=== PATIENT | male | born 1970 | race Caucasian/White ===

== ENCOUNTER 2018-02-26 22:28 | Emergency (ER) | payer OTHER ==
[~2018-02-26] VITALS: Ht 177.8 cm; Wt 77.1 kg
--- NOTE | 2018-02-26 22:29 | NUR ---
PT TAKEN TO BED 10
--- NOTE | 2018-02-26 22:30 | NUR ---
Dr. Flanagan evaluating patient at bedside.
[2018-02-26 22:31] VITALS: BP 160/107
--- NOTE | 2018-02-26 22:31 | NUR ---
PATIENT IS A 47 Y/O MALE WHO PRESENTS TO THE ED C/O LEFT KNEE PAIN. PT STATES THAT HE HAS A H/O LEFT KNEE PAIN STATING, "DOCTOR SAYS THERE IS NO CARTILAGE ANYMORE." PT REPORTS 10/10 ACHING LEFT KNEE PAIN THAT DOES NOT RADIATE. NO OBVIOUS TRAUMA OR INJURY. PT DENIES CP, SOB, N/V/D. PT AWAKE AND ALERT, RR EVEN/UNLABORED. PT REPOSITIONED FOR COMFORT, BED IN LOWEST POSITION. ER MD DR. RAMIREZ NOTIFIED. WILL CONTINUE TO MONITOR.
[2018-02-26] MEDS ORDERED: ACETAMINOPHEN EXTRA STRENGTH 500 MG TAB PO ONE (22:45)
[2018-02-26 23:04] VITALS: BP 157/100
--- NOTE | 2018-02-26 23:05 | NUR ---
homeless patient waiver form given-signature by pt done
--- NOTE | 2018-02-26 23:06 | NUR ---
Patient discharged with v/s stable. Written and verbal after care instructions given and explained. Patient alert, oriented and verbalized understanding of instructions. Ambulatory with steady gait. All questions addressed prior to discharge. ID band removed. Patient advised to follow up with PMD. Rx of acetaminophen 500mg given. Patient educated on indication of medication including possible reaction and side effects. Opportunity to ask questions provided and answered.
== END 2018-02-26 23:07 | disposition home or self-care (01) ==
LOC: MED 22:28
DX: M25.562 Pain in left knee (principal); Z88.5 Allergy status to narcotic agent
CPT/HCPCS: 99283

== ENCOUNTER 2018-06-21 00:05 | Emergency (ER) | payer MEDICAID, OTHER ==
[~2018-06-21] VITALS: Ht 177.8 cm; Wt 82.1 kg
[2018-06-21 00:05] VITALS: BP 145/104
[2018-06-21] MEDS ORDERED: HYDROcodone/APAP 5/325 MG 1 TAB TAB PO ONE (01:05)
[2018-06-21] MEDS ORDERED: KETOROLAC 30 MG/ML VIAL IM ONE (01:05)
[2018-06-21 02:00] VITALS: BP 135/84
== END 2018-06-21 02:00 | disposition home or self-care (01) ==
LOC: MED 00:05
DX: G89.29 Other chronic pain (principal); M25.562 Pain in left knee; Z88.5 Allergy status to narcotic agent; Z59.0 Homelessness
CPT/HCPCS: 96372; 99283; J1885

== ENCOUNTER 2018-06-22 21:11 | Emergency (ER) | payer MEDICAID ==
[~2018-06-22] VITALS: Ht 177.8 cm; Wt 81.6 kg
[2018-06-22 21:20] VITALS: BP 141/64
--- NOTE | 2018-06-22 21:22 | NUR ---
PT AMBULATORY TO ER LOBBY W/ STEADY GAIT IN STABLE CONDITION.
--- NOTE | 2018-06-22 22:01 | NUR ---
Amb to chair E per self.
[2018-06-22] MEDS ORDERED: BACITRACIN OINT 500 UNITS/GM PKT TP ONE (22:50)
[2018-06-22 23:05] VITALS: BP 137/72
--- NOTE | 2018-06-22 23:05 | NUR ---
Patient discharged with v/s stable. Written and verbal after care instructions given and explained. Patient alert, oriented and verbalized understanding of instructions. Ambulatory with steady gait. All questions addressed prior to discharge. ID band removed. Patient advised to follow up with PMD. Rx of Bacitracin nita given. Patient educated on indication of medication including possible reaction and side effects. Opportunity to ask questions provided and answered.
== END 2018-06-22 23:05 | disposition home or self-care (01) ==
LOC: MED 21:11
DX: S00.81XA Abrasion of other part of head, initial encounter (principal); S60.511A Abrasion of right hand, initial encounter; Z59.0 Homelessness; Z88.5 Allergy status to narcotic agent; Z88.8 Allergy status to other drugs, medicaments and biological substances; W18.09XA Striking against other object with subsequent fall, initial encounter; Y93.89 Activity, other specified; Y92.89 Other specified places as the place of occurrence of the external cause; Y99.8 Other external cause status
CPT/HCPCS: 99283

== ENCOUNTER 2018-06-25 17:38 | Emergency (ER) | payer MEDICAID ==
[~2018-06-25] VITALS: Ht 177.8 cm; Wt 83.0 kg
[2018-06-25 17:46] VITALS: BP 154/88
--- NOTE | 2018-06-25 17:49 | NUR ---
PT TAKEN TO THE LOBBY W/ VSS TO WAIT FOR AN AVIALABLE BED W/ STEADY GAIT.
--- NOTE | 2018-06-25 18:50 | NUR ---
PT SITTING IN THE LOBBY AT THIS TIME READING A MAGAZINE. VSS. NO NEW COMPLAINTS NOR CHANGE IN CONDITION. WILL CONTINUE TO MONITOR.
--- NOTE | 2018-06-25 19:39 | NUR ---
CALLED FOR BED, NO REPLY AT THIS TIME WILL TRY AGAIN
--- NOTE | 2018-06-25 19:45 | NUR ---
PT TO BED #11 AMBULATED
--- NOTE | 2018-06-25 19:46 | NUR ---
PT PRESENTED ER WITH C/O COLD/CONGESTION, DIARRHEA, WOUND CHECK X 2 DAYS. PT DENIES FEVER, ABDOMINAL PAIN, N/V AT THIS TIME. PT WOUND CHECK IN ON FOREHEAD RIGHT SIDE. PT IS A/O X 4. EVEN AND STEADY GAIT; VSS; PATIENT POSITIONED FOR COMFORT; HOB ELEVATED; BEDRAILS UP X2; BED DOWN. ER MD MADE AWARE OF PT STATUS.
[2018-06-25] MEDS ORDERED: PHENYLEPHRINE 0.5% 15 ML BTL NS ONE (21:00)
[2018-06-25] MEDS ORDERED: BACITRACIN OINT 500 UNITS/GM PKT TP ONE (21:00)
--- NOTE | 2018-06-25 21:23 | NUR ---
PT WAS GIVEN A RESOURCE PACKET AND A HOMELESS WAIVER SIGNED. ER MADE AWARE.
[2018-06-25 21:24] VITALS: BP 154/88
--- NOTE | 2018-06-25 21:24 | NUR ---
Patient discharged with v/s stable. Written and verbal after care instructions given and explained. Patient alert, oriented and verbalized understanding of instructions. Ambulatory with steady gait. All questions addressed prior to discharge. ID band removed. Patient advised to follow up with PMD. Rx of BACITRACIN, SUDAFED WAS given. Patient educated on indication of medication including possible reaction and side effects. Opportunity to ask questions provided and answered.
== END 2018-06-25 21:24 | disposition home or self-care (01) ==
LOC: MED 17:38
DX: S00.81XA Abrasion of other part of head, initial encounter (principal); J06.9 Acute upper respiratory infection, unspecified; Z88.6 Allergy status to analgesic agent; Z88.8 Allergy status to other drugs, medicaments and biological substances; W01.0XXA Fall on same level from slipping, tripping and stumbling without subsequent striking against object, initial encounter; Y93.89 Activity, other specified; Y92.89 Other specified places as the place of occurrence of the external cause; Y99.8 Other external cause status
CPT/HCPCS: 99283

== ENCOUNTER 2018-06-27 12:44 | Emergency (ER) | payer MEDICAID ==
[~2018-06-27] VITALS: Ht 177.8 cm; Wt 81.6 kg
[2018-06-27 12:48] VITALS: BP 124/82
[2018-06-27] MEDS ORDERED: KETOROLAC 60 MG/2 ML VIAL IM ONE (12:50)
--- NOTE | 2018-06-27 13:09 | NUR ---
PATIENT PRESENTS TO ED WITH THE CHIEF C/O LEFT KNEE CHRONIC PAIN. PT STATED HE WAS UNDER NEPROXYN FOR PAIN AND OFF FROM PAIN MEDS SINCE HE LOST HIS MEDS 3 WEEKS AGO. NO INJURY NOTED ON LEFT KNEE. NO SWOLLING NOTED. PITTING EDEMA NOTED ON LEFT LOWER LEG. PT ABLE TO MOVE LEG BUT HAS PAIN ON FLEXION. DENIES N/V/D; SKIN IS PINK/WARM/DRY; AAOX4. PATIENT STATES PAIN OF 10/10 AT THIS TIME; VSS; PATIENT POSITIONED FOR COMFORT; HOB ELEVATED; BEDRAILS UP X2; BED DOWN. ER MD MADE AWARE OF PT STATUS.
--- NOTE | 2018-06-27 14:33 | NUR ---
PT DENIED ANY KNEE IMMOBILIZER OR RENATE WRAP. NOTIFIED MJ ACEVES, VERBAL ORDER GIVEN TO GIVE AN RENATE WRAP JUST IN CASE. PT GIVEN RENATE WRAP.
[2018-06-27 14:54] VITALS: BP 139/65
== END 2018-06-27 14:44 | disposition home or self-care (01) ==
LOC: MED 12:44
DX: M25.562 Pain in left knee (principal); Z59.0 Homelessness; Z88.5 Allergy status to narcotic agent
CPT/HCPCS: 96372; 99283; J1885

== ENCOUNTER 2018-12-23 22:39 | Emergency (ER) | payer MEDICAID, OTHER ==
[~2018-12-23] VITALS: Ht 177.8 cm; Wt 83.9 kg
[2018-12-23 22:44] VITALS: BP 154/108
--- NOTE | 2018-12-24 00:01 | NUR ---
PT TAKEN TO BED 10.
--- NOTE | 2018-12-24 00:35 | NUR ---
PATIENT LEFT WITHOUT BEING SEEN BY DR. RAMIREZ. NO FURTHER CARE PROVIDED FOR PATIENT.
== END 2018-12-24 00:35 | disposition left against medical advice (07) ==
LOC: MED 22:39
DX: K13.79 Other lesions of oral mucosa (principal); Z53.21 Procedure and treatment not carried out due to patient leaving prior to being seen by health care provider
CPT/HCPCS: 90471

== ENCOUNTER 2018-12-29 14:39 | Emergency (ER) | payer OTHER ==
[~2018-12-29] VITALS: Ht 177.8 cm; Wt 74.9 kg
[2018-12-29 14:44] VITALS: BP 137/92
--- NOTE | 2018-12-29 15:04 | NUR ---
Patient discharged with v/s stable. Written and verbal after care instructions given and explained. Patient alert, oriented and verbalized understanding of instructions. Ambulatory with steady gait. All questions addressed prior to discharge. ID band removed. Patient advised to follow up with PMD. Rx of prilosec, naprosyn given. Patient educated on indication of medication including possible reaction and side effects. Opportunity to ask questions provided and answered.
[2018-12-29 15:05] VITALS: BP 137/92
== END 2018-12-29 15:04 | disposition home or self-care (01) ==
LOC: MED 14:39
DX: M25.562 Pain in left knee (principal); Z76.0 Encounter for issue of repeat prescription; Z88.5 Allergy status to narcotic agent; Z88.8 Allergy status to other drugs, medicaments and biological substances
CPT/HCPCS: 99283

== ENCOUNTER 2019-11-20 23:11 | Emergency (ER) | payer SELFPAY ==
[~2019-11-20] VITALS: Ht 177.8 cm; Wt 83.9 kg
[2019-11-20 23:18] VITALS: BP 161/105
--- NOTE | 2019-11-20 23:29 | NUR ---
49 Y/O M BIBA C/O LT KNEE PAIN/SWELLING X2 DAYS. PT STATES HE HAS BEEN RUNNING ALL DAY TODAY AND LT KNEE PAIN AND SWELLING GOT WORST. PT STATES THAT HE WAS SEEN AT [facility] YESTERDAY AND WAS PESCRIBED MELOXICAM. PT STATES LAST TIME HE TOOK MELOXICAM WAS THIS MORNING. RR EVEN AND UNLABORED. PT AMBULATES BY HOPING. PT DOES PRESENTS WITH LT KNEE SWELLING. PMH: KNEE SURGERY IN 1987 ALLERGIES: OXYCODONE
--- NOTE | 2019-11-20 23:30 | NUR ---
PREET AT CHAIR EVALUATING PT
[2019-11-20] MEDS ORDERED: ACETAMINOPHEN 325 MG TAB PO ONE (23:35)
[2019-11-20] MEDS ORDERED: IBUPROFEN 600 MG TAB PO ONE (23:35)
--- NOTE | 2019-11-20 23:35 | NUR ---
PT LEFT KNEE WRAPPED WITH TWO 3" INCH RENATE WRAPS
[2019-11-20 23:55] VITALS: BP 161/105
--- NOTE | 2019-11-20 23:56 | NUR ---
Patient discharged with v/s stable. Written and verbal after care instructions given and explained. Patient alert, oriented and verbalized understanding of instructions. Ambulatory with steady gait. All questions addressed prior to discharge. ID band removed. Patient advised to follow up with PMD. Rx of motrin, tylenol given. Patient educated on indication of medication including possible reaction and side effects. Opportunity to ask questions provided and answered.
== END 2019-11-20 23:55 | disposition home or self-care (01) ==
LOC: MED 23:11
DX: M25.562 Pain in left knee (principal); Z98.890 Other specified postprocedural states; Z88.8 Allergy status to other drugs, medicaments and biological substances
CPT/HCPCS: 99283

== ENCOUNTER 2020-01-07 10:04 | Emergency (ER) | payer SELFPAY ==
[~2020-01-07] VITALS: Ht 177.8 cm; Wt 81.6 kg
--- NOTE | 2020-01-07 10:05 | NUR ---
BIBA TAKEN TO BED 7
[2020-01-07 10:07] VITALS: BP 128/85
[2020-01-07] MEDS ORDERED: BACITRACIN OINT 500 UNITS/GM PKT TP ONE (10:15)
[2020-01-07] MEDS ORDERED: IBUPROFEN 400 MG TAB PO ONE (10:15)
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
--- NOTE | 2020-01-07 10:51 | NUR ---
APPLIED BACITRACIN TO LEFT UPPER FACE WITHOUT ANY ISSUES
--- NOTE | 2020-01-07 10:54 | NUR ---
VISUAL ACUITY TEST PERFORMED AT BEDSIDE BY EMT
[2020-01-07 11:26] VITALS: BP 128/85
== END 2020-01-07 11:27 | disposition home or self-care (01) ==
LOC: MED 10:04
DX: S00.83XA Contusion of other part of head, initial encounter (principal); S02.2XXA Fracture of nasal bones, initial encounter for closed fracture; R03.0 Elevated blood-pressure reading, without diagnosis of hypertension; Z88.6 Allergy status to analgesic agent; Z88.8 Allergy status to other drugs, medicaments and biological substances; Z86.718 Personal history of other venous thrombosis and embolism; Z87.828 Personal history of other (healed) physical injury and trauma; Y04.2XXA Assault by strike against or bumped into by another person, initial encounter; Y93.89 Activity, other specified; Y92.89 Other specified places as the place of occurrence of the external cause; Y99.8 Other external cause status
CPT/HCPCS: 70486; 90471; 90715; 99284